=== PATIENT | female | born 1950 | race African-American/Black ===

== ENCOUNTER → 2016-04-24 | Outpatient (CLI) | payer MEDICARE, MEDICAID | END | disposition home or self-care (01) | LOC: LAB 10:17 | PROVIDERS: ATTEND Internal Medicine | DX: C71.9 Malignant neoplasm of brain, unspecified (principal) | CPT/HCPCS: 36415; 82565; 84520 ==

== ENCOUNTER → 2017-04-13 | Outpatient (CLI) | payer MEDICARE, MEDICAID ==
[2017-04-13 09:19] LABS: Basophils # (auto) 0.1 uL; Basophils % (auto) 0.8 % (0.0-2.0); Eosinophils # (auto) 0.5 uL; Eosinophils % (auto) 7.5 % (0.0-7.0); Hematocrit 37.4 % (36.0-46.0); Hemoglobin 12.4 g/dL (12.2-16.2); Lymphocytes # (auto) 2.5 uL; Lymphocytes % (auto) 36.4 % (10.0-50.0); Mean Corpuscular Hemoglobin 28.4 pg (28.0-32.0); Monocytes # (auto) 0.4 uL; Monocytes % (auto) 5.7 % (0.0-12.0); Neutrophils # (auto) 3.3 uL; Neutrophils % (auto) 49.6 % (37.0-80.0); Nucleated Red Blood Cells % 0.1 %; Platelet Count (auto) 247 10^3/uL (140-450); Red Blood Cells 4.35 10^6/uL (4.0-5.20); Red Cell Distribution Width 13.4 % (11.8-14.3); White Blood Cell 6.7 10^3/uL (4.4-10.8)
[2017-04-13 09:46] LABS: Albumin 3.8 g/dL (3.4-5.0); BUN/Creatinine Ratio 18.5; Bilirubin, Total 0.2 mg/dL (0.2-1.0); Calcium 9.8 mg/dL (8.5-10.1); Potassium 4.5 mmol/L (3.5-5.1); Total Protein 8.6 g/dL (6.4-8.2)
== END | disposition home or self-care (01) ==
LOC: LAB 08:57
PROVIDERS: ATTEND Physician Assistant
DX: I10 Essential (primary) hypertension (principal); I65.23 Occlusion and stenosis of bilateral carotid arteries; I63.9 Cerebral infarction, unspecified
CPT/HCPCS: 36415; 80053; 80061; 85025

== ENCOUNTER → 2018-12-05 | Outpatient (CLI) | payer MEDICARE, MEDICAID ==
[2018-12-05 08:42] LABS: Basophils # (auto) 0.1 uL; Basophils % (auto) 0.7 % (0.0-2.0); Eosinophils % (auto) 13.4 % (0.0-7.0); Hematocrit 35.9 % (36.0-46.0); Hemoglobin 11.5 g/dL (12.2-16.2); Lymphocytes # (auto) 3.6 uL; Lymphocytes % (auto) 46.5 % (10.0-50.0); Mean Corpuscular Hemoglobin 27.8 pg (28.0-32.0); Mean Corpuscular Volume 87.1 fL (80.0-100.0); Monocytes # (auto) 0.5 uL; Monocytes % (auto) 6.2 % (0.0-12.0); Neutrophils # (auto) 2.5 uL; Neutrophils % (auto) 33.2 % (37.0-80.0); Nucleated Red Blood Cells % 0.1 %; Platelet Count (auto) 249 10^3/uL (140-450); Red Blood Cells 4.12 10^6/uL (4.0-5.20); White Blood Cell 7.6 10^3/uL (4.4-10.8)
[2018-12-05 09:13] LABS: Albumin 3.3 g/dL (3.4-5.0); Potassium 5.5 mmol/L (3.5-5.1)
[2018-12-05 09:21] LABS: BUN/Creatinine Ratio 17.4; Bilirubin, Total 0.4 mg/dL (0.2-1.0); Total Protein 7.8 g/dL (6.4-8.2)
== END | disposition home or self-care (01) ==
LOC: LAB 08:20
PROVIDERS: ATTEND Physician Assistant
DX: I63.9 Cerebral infarction, unspecified (principal); I10 Essential (primary) hypertension; J45.20 Mild intermittent asthma, uncomplicated; I69.361 Other paralytic syndrome following cerebral infarction affecting right dominant side; I65.23 Occlusion and stenosis of bilateral carotid arteries
CPT/HCPCS: 36415; 80053; 80061; 85025

== ENCOUNTER 2019-02-10 17:39 | Inpatient (IN) | payer MEDICARE, MEDICAID ==
[~2019-02-10] VITALS: Ht 170.2 cm; Wt 67.6 kg
[2019-02-10 18:07] LABS: Basophils # (auto) 0 uL; Basophils % (auto) 0.5 % (0.0-2.0); Eosinophils # (auto) 0.9 uL; Eosinophils % (auto) 10.8 % (0.0-7.0); Hematocrit 32.4 % (36.0-46.0); Hemoglobin 10.4 g/dL (12.2-16.2); Lymphocytes # (auto) 2.4 uL; Lymphocytes % (auto) 28.9 % (10.0-50.0); Mean Corpuscular Hemoglobin 27.4 pg (28.0-32.0); Mean Corpuscular Hgb Conc. 32.1 g/dL (32.0-36.0); Mean Corpuscular Volume 85.4 fL (80.0-100.0); Monocytes # (auto) 0.8 uL; Monocytes % (auto) 8.9 % (0.0-12.0); Neutrophils # (auto) 4.3 uL; Neutrophils % (auto) 50.9 % (37.0-80.0); Platelet Count (auto) 268 10^3/uL (140-450); Red Blood Cells 3.79 10^6/uL (4.0-5.20); Red Cell Distribution Width 14.1 % (11.8-14.3); White Blood Cell 8.5 10^3/uL (4.4-10.8)
[2019-02-10 18:21] LABS: Alanine Aminotransferase 11 U/L (13-56); Albumin 3.2 g/dL (3.4-5.0); Anion Gap 6 (5-15); Aspartate Aminotransferase 9 U/L (15-37); BUN/Creatinine Ratio 20.5; Blood Urea Nitrogen 39 mg/dL (7-18); Calcium 8.4 mg/dL (8.5-10.1); Carbon Dioxide 18 mmol/L (21-32); Chloride 117 mmol/L (98-107); GFR African American 34 mL/min; GFR Non-African American 28 mL/min; Glucose 121 mg/dL (74-106); Potassium 4.3 mmol/L (3.5-5.1); Sodium 141 mmol/L (136-145)
[2019-02-10 18:30] LABS: Alkaline Phosphatase 245 U/L (45-117); Bilirubin, Total 0.4 mg/dL (0.2-1.0); Total Protein 7.9 g/dL (6.4-8.2)
[2019-02-10 19:20] LABS: Urine Bacteria FEW /hpf (None Seen); Urine Blood Negative /uL (Negative); Urine Specific Gravity 1.016 (1.001-1.035); Urine WBC 2 /hpf (0 - 5)
[2019-02-10 19:28] LABS: Alcohol, Urine < 3.0 mg/dL (0-5); Amphetamine Screen, Urine NEGATIVE (NEGATIVE); Barbiturate Scree,Urine NEGATIVE (NEGATIVE); Benzodiazephine Screen, Urine NEGATIVE (NEGATIVE); Cannabinoid Screen, Urine NEGATIVE (NEGATIVE); Cocaine Screen, Urine NEGATIVE (NEGATIVE); Opiate Scree,Urine NEGATIVE (NEGATIVE); Phencyclidine Screen, Urine NEGATIVE (NEGATIVE)
[2019-02-10] MEDS ORDERED: SODIUM CHLORIDE 0.9% 1,000 ML IV ONE (19:30)
[2019-02-10] MEDS ORDERED: cefTRIAXone 1GM/50ML D5W 50 ML IV ONE (19:45)
[2019-02-10] MEDS ORDERED: SODIUM CHLORIDE 0.9% 1,000 ML IV SCH (22:10)
[2019-02-10] MEDS ORDERED: ONDANSETRON HCL 4 MG/2 ML VIAL IV PRN (22:15)
[2019-02-10] MEDS ORDERED: ACETAMINOPHEN 325 MG TAB PO PRN (22:15)
[2019-02-10] MEDS ORDERED: DOCUSATE SOD 100 MG CAP PO PRN (22:15)
[2019-02-10] MEDS: SODIUM CHLORIDE 0.9% 1,000 ML IV SCH (23:00)
[2019-02-10] MEDS: HYDROcodone-ACET 5/325MG TAB PO PRN (23:01)
--- NOTE | 2019-02-10 23:30 | NUR ---
MS admit from ER Kya Coughlin admitted to tele/MS after SBAR received. Patient oriented to Serena stark RN, unit, room, bed, and unit policies regarding patient care and visiting hours. Patient weighed by bedscale and encouraged to call if they need something. All questions and concerns addressed, patient confused. call light with in reach. bed in low position. bed alarm on. will continue to monitor.
[2019-02-11] VITALS (7 sets, daily range): BP systolic 95–135; BP diastolic 48–66
--- NOTE | 2019-02-11 00:15 | NUR ---
UNABLE TO GET HOME MEDICATIONS. WILL ENDORSE TO DAY SHIFT.
[2019-02-11] MEDS: HYDROcodone-ACET 5/325MG TAB PO PRN ×2 (05:14→14:36)
[2019-02-11 06:37] LABS: Basophils # (auto) 0 uL; Basophils % (auto) 0.4 % (0.0-2.0); Hematocrit 29.1 % (36.0-46.0); Hemoglobin 9.5 g/dL (12.2-16.2); Lymphocytes # (auto) 3.1 uL; Lymphocytes % (auto) 40.1 % (10.0-50.0); Mean Corpuscular Hemoglobin 27.9 pg (28.0-32.0); Mean Corpuscular Hgb Conc. 32.7 g/dL (32.0-36.0); Mean Corpuscular Volume 85.4 fL (80.0-100.0); Monocytes # (auto) 0.7 uL; Monocytes % (auto) 8.8 % (0.0-12.0); Neutrophils # (auto) 2.9 uL; Neutrophils % (auto) 37.7 % (37.0-80.0); Nucleated Red Blood Cells % 0.1 %; Platelet Count (auto) 232 10^3/uL (140-450); Red Cell Distribution Width 14.4 % (11.8-14.3); White Blood Cell 7.7 10^3/uL (4.4-10.8)
[2019-02-11 07:04] LABS: BUN/Creatinine Ratio 19.9; Calcium 8.1 mg/dL (8.5-10.1); Potassium 4.1 mmol/L (3.5-5.1)
--- NOTE | 2019-02-11 07:30 | NUR ---
Opening Shift Note Assumed care of patient, awake, alert and oriented x1. No S/S of distress/SOB, but patient reporting right arm pain of 5/10. IV is in the right forearm and is asymptomatic, intact, patent, and infusing normal saline at 60 mL/hour. Bed is locked and in lowest position and call light is within reach. Instructed on POC and to call for assist PRN, and patient verbalized understanding to the best of her ability. Will continue to monitor for changes Q1hr and PRN.
[2019-02-11] MEDS: cefTRIAXone 1GM/50ML D5W 50 ML IV SCH (09:00)
[2019-02-11] MEDS ORDERED: cefTRIAXone SOD 500 MG VL IV SCH (10:00)
--- NOTE | 2019-02-11 12:00 | NUR ---
Daughter brought in home medications; will do medication reconciliation.
[2019-02-11] MEDS ORDERED: LISI40TA PO (12:05)
[2019-02-11] MEDS ORDERED: NAP500T PO (12:05)
[2019-02-11] MEDS ORDERED: TRIATAB3 PO (12:05)
[2019-02-11] MEDS: SODIUM CHLORIDE 0.9% 1,000 ML IV SCH (15:01)
[2019-02-11 22:39] LABS: Anion Gap 8 (5-15); Carbon Dioxide 17 mmol/L (21-32); Chloride 120 mmol/L (98-107); Potassium 4.3 mmol/L (3.5-5.1); Sodium 145 mmol/L (136-145)
[2019-02-11 22:40] LABS: BUN/Creatinine Ratio 18.5; Blood Urea Nitrogen 29 mg/dL (7-18); GFR African American 42 mL/min; GFR Non-African American 35 mL/min; Glucose 97 mg/dL (74-106)
[2019-02-12] MEDS: HYDROcodone-ACET 5/325MG TAB PO PRN ×2 (02:10→09:19)
[2019-02-12 04:51] VITALS: BP 121/59
[2019-02-12 06:03] LABS: Basophils # (auto) 0 uL; Basophils % (auto) 0.3 % (0.0-2.0); Eosinophils % (auto) 12.1 % (0.0-7.0); Hematocrit 27.8 % (36.0-46.0); Hemoglobin 9.3 g/dL (12.2-16.2); Lymphocytes # (auto) 3.1 uL; Lymphocytes % (auto) 37.8 % (10.0-50.0); Mean Corpuscular Hemoglobin 28.4 pg (28.0-32.0); Mean Corpuscular Hgb Conc. 33.3 g/dL (32.0-36.0); Mean Corpuscular Volume 85.1 fL (80.0-100.0); Monocytes # (auto) 0.6 uL; Monocytes % (auto) 7.9 % (0.0-12.0); Neutrophils # (auto) 3.4 uL; Neutrophils % (auto) 41.9 % (37.0-80.0); Nucleated Red Blood Cells % 0.1 %; Platelet Count (auto) 207 10^3/uL (140-450); Red Blood Cells 3.27 10^6/uL (4.0-5.20); Red Cell Distribution Width 14.2 % (11.8-14.3); White Blood Cell 8.1 10^3/uL (4.4-10.8)
--- NOTE | 2019-02-12 07:30 | NUR ---
Opening Shift Note Assumed care of patient, awake, alert and oriented x2. No S/S of distress/SOB. IV is in the right forearm and is asymptomatic, intact, patent, and saline locked. Bed is locked and in lowest position and call light is within reach. Instructed on POC and to call for assist PRN, and patient verbalized understanding to the best of her ability. Will continue to monitor for changes Q1hr and PRN.
[2019-02-12 09:00] VITALS: BP 106/55
[2019-02-12] MEDS: SODIUM CHLORIDE 0.9% 1,000 ML IV SCH (09:19)
[2019-02-12] MEDS: cefTRIAXone 1GM/50ML D5W 50 ML IV SCH (09:19)
--- NOTE | 2019-02-12 09:30 | NUR ---
Patient reports pain in right arm and wrist of 10/10; applied hot packs to right wrist and arm and administered ordered pain medication. Will reassess in 30 minutes.
--- NOTE | 2019-02-12 10:15 | NUR ---
Patient is now reporting pain level of 4/10 in right arm and shoulder. Repositioned patient for comfort. Will continue to monitor Q 30 minutes.
[2019-02-12 13:00] VITALS: BP 106/65
[2019-02-12 17:00] VITALS: BP 112/55
[2019-02-12] MEDS: traMADol HCL 50 MG TAB PO PRN (20:28)
[2019-02-12 22:00] VITALS: BP 116/50
[2019-02-13] MEDS: traMADol HCL 50 MG TAB PO PRN ×3 (04:27→15:25)
[2019-02-13 05:00] VITALS: BP 124/58
[2019-02-13 06:05] LABS: Basophils # (auto) 0 uL; Basophils % (auto) 0.4 % (0.0-2.0); Eosinophils # (auto) 0.9 uL; Eosinophils % (auto) 11.1 % (0.0-7.0); Hematocrit 28.8 % (36.0-46.0); Hemoglobin 9.7 g/dL (12.2-16.2); Lymphocytes # (auto) 2.3 uL; Lymphocytes % (auto) 27.8 % (10.0-50.0); Mean Corpuscular Hemoglobin 28.4 pg (28.0-32.0); Mean Corpuscular Hgb Conc. 33.6 g/dL (32.0-36.0); Mean Corpuscular Volume 84.3 fL (80.0-100.0); Monocytes # (auto) 0.7 uL; Monocytes % (auto) 8.7 % (0.0-12.0); Neutrophils # (auto) 4.3 uL; Nucleated Red Blood Cells % 0.1 %; Platelet Count (auto) 227 10^3/uL (140-450); Red Blood Cells 3.42 10^6/uL (4.0-5.20); Red Cell Distribution Width 14.4 % (11.8-14.3); White Blood Cell 8.2 10^3/uL (4.4-10.8)
[2019-02-13 06:18] LABS: Calcium 8.2 mg/dL (8.5-10.1); Potassium 4.5 mmol/L (3.5-5.1)
--- NOTE | 2019-02-13 07:20 | NUR ---
Opening Shift Note Assumed care of patient, awake, alert and oriented x3. No S/S of distress/SOB, but patient reporting right arm pain of 7/10. IV is in the right forearm and is asymptomatic, intact, patent, and is saline locked. Bed is locked and in lowest position and call light is within reach. Instructed on POC and to call for assist PRN, and patient verbalized understanding to the best of her ability. Will continue to monitor for changes Q1hr and PRN.
[2019-02-13 08:00] VITALS: BP 143/69
[2019-02-13 09:00] VITALS: BP 143/69
[2019-02-13] MEDS: cefTRIAXone 1GM/50ML D5W 50 ML IV SCH (09:16)
--- NOTE | 2019-02-13 12:30 | NUR ---
Dr. Schafer, Hospitalist/[employer], at bedside; new orders received.
--- NOTE | 2019-02-13 12:45 | NUR ---
Called contact Spencer, and left message to return call regarding patient discharge and transportation.
[2019-02-13] MEDS ORDERED: AML5T PO (12:46)
[2019-02-13] MEDS ORDERED: ATOR40TA52 PO (12:51)
[2019-02-13] MEDS ORDERED: ASPI-231 PO (12:53)
[2019-02-13 13:00] VITALS: BP 113/60
[2019-02-13] MEDS ORDERED: NAPR375T27 PO (13:27)
[2019-02-13] MEDS ORDERED: LISI40TA PO (13:27)
[2019-02-13] MEDS ORDERED: TRIATAB3 PO (13:27)
--- NOTE | 2019-02-13 13:28 | NUR ---
Dr. Mark MD, ordered patient to stop current home medications until seen by primary care provider for discharge follow up appointment; new medications were given for aspirin, norvasc, and atorvastatin.
[2019-02-13 13:42] VITALS: BP 143/69
[2019-02-13 17:00] VITALS: BP 128/67
--- NOTE | 2019-02-13 18:00 | NUR ---
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
--- NOTE | 2019-02-13 19:25 | NUR ---
RECEIVED PATIENT FROM DAY SHIFT RN. PATIENT RESTING IN BED. NO S/S OF DISTRESS NOTED. IV REMOVED BY DAY SHIFT RN. PATIENT AWARE OF WAITING FOR HER FAMILY TO PICK HER UP FOR DISCHARGE. BED IN LOWEST POSITION WITH SIDE RAILS UP X 2. CALL MATHEW WITHIN REACH. ALARM ON. CONTINUE TO MONITOR FOR CHANGES Q1H AND PRN.
--- NOTE | 2019-02-13 19:53 | NUR ---
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 CALLED LAILA @ [phone], PHONE TO THE VOICE MAIL BOX DIRECTLY. WILL TRY LATER. CONTINUE TO MONITOR.
--- NOTE | 2019-02-13 20:24 | NUR ---
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 PATIENT AWARE. CONTINUE TO MONITOR.
--- NOTE | 2019-02-13 22:05 | NUR ---
Discharge instructions PREPARED AND given BY DAY SHIFT RN as ordered. Encourage to follow up with PMD as instructed. All questions and concerns addressed. Patient verbalized understanding. Medication reconciliation form completed and copy given to patient. IV removed BY DAY SHIFT RN. REMIND FAMILY FOR THE F/U APPT ON 02/17. Patient taken to vehicle via wheelchair with all personal belongings, accompanied by staff and family member. No distress noted at time of departure.
== END 2019-02-13 22:05 | disposition home or self-care (01) | DRG 314 ==
LOC: EDBD 17:39 → ER 17:39 → OVERFLOW 17:40 → EAST 23:31
PROVIDERS: ADMIT Hospitalist; ATTEND Internal Medicine Nephrology
DX: I95.9 Hypotension, unspecified (principal); G93.41 Metabolic encephalopathy; N17.0 Acute kidney failure with tubular necrosis; N39.0 Urinary tract infection, site not specified; I69.351 Hemiplegia and hemiparesis following cerebral infarction affecting right dominant side; E87.2 Acidosis; T39.395A Adverse effect of other nonsteroidal anti-inflammatory drugs [NSAID], initial encounter; D64.9 Anemia, unspecified; I10 Essential (primary) hypertension; D63.8 Anemia in other chronic diseases classified elsewhere; E78.5 Hyperlipidemia, unspecified; F03.90 Unspecified dementia, unspecified severity, without behavioral disturbance, psychotic disturbance, mood disturbance, and anxiety; G89.4 Chronic pain syndrome; I12.9 Hypertensive chronic kidney disease with stage 1 through stage 4 chronic kidney disease, or unspecified chronic kidney disease; N18.3 Chronic kidney disease, stage 3 (moderate); Y92.89 Other specified places as the place of occurrence of the external cause
CPT/HCPCS: 36415; 70450; 80048; 80053; 80307; 81001; 82962; 83605; 83880; 84484; 85025; 87086; 93005; 96365; G0378; J0696

== ENCOUNTER → 2019-11-27 | Outpatient (CLI) | payer MEDICARE, MEDICAID ==
[~2019-11-27] MED LIST: ATOR40TA52 PO; LISI40TA11 PO; NAPR375T27 PO; TRIATAB3 PO
[2019-11-27 11:51] LABS: Basophils # (auto) 0 10 ^3/uL (0-0.2); Basophils % (auto) 0.4 % (0.0-2.0); Eosinophils % (auto) 10.8 % (0.0-7.0); Hematocrit 32.6 % (36.0-46.0); Hemoglobin 10.4 g/dL (12.2-16.2); Lymphocytes # (auto) 3.5 10 ^3/uL (0.4-5.4); Lymphocytes % (auto) 37.2 % (10.0-50.0); Mean Corpuscular Hemoglobin 26.2 pg (28.0-32.0); Monocytes # (auto) 0.7 10 ^3/uL (0-1.3); Monocytes % (auto) 7.7 % (0.0-12.0); Neutrophils # (auto) 4.2 10 ^3/uL (1.6-8.6); Neutrophils % (auto) 43.9 % (37.0-80.0); Platelet Count (auto) 256 10^3/uL (140-450); Red Blood Cells 3.97 10^6/uL (4.0-5.20); Red Cell Distribution Width 13.7 % (11.8-14.3); White Blood Cell 9.5 10^3/uL (4.4-10.8)
[2019-11-27 12:35] LABS: Albumin 3.3 g/dL (3.4-5.0); BUN/Creatinine Ratio 16.9; Bilirubin, Total 0.2 mg/dL (0.2-1.0); Calcium 9.2 mg/dL (8.5-10.1); Total Protein 8.1 g/dL (6.4-8.2)
== END | disposition home or self-care (01) ==
LOC: LAB 11:29
PROVIDERS: ATTEND Physician Assistant
DX: I10 Essential (primary) hypertension (principal); I63.9 Cerebral infarction, unspecified; G93.40 Encephalopathy, unspecified; I69.361 Other paralytic syndrome following cerebral infarction affecting right dominant side
CPT/HCPCS: 36415; 80053; 80061; 85025

== ENCOUNTER → 2019-11-29 | Outpatient (CLI) | payer MEDICARE, MEDICAID | END | disposition home or self-care (01) | LOC: XY 10:26 | PROVIDERS: ATTEND Physician Assistant | DX: I65.23 Occlusion and stenosis of bilateral carotid arteries (principal); I63.9 Cerebral infarction, unspecified | CPT/HCPCS: 93886 ==

== ENCOUNTER 2021-03-18 21:43 | Inpatient (IN) | payer MEDICARE, MEDICAID ==
[~2021-03-18] VITALS: Ht 162.6 cm; Wt 61.0 kg
[2021-03-18 23:01] LABS: Basophils # (auto) 0.1 10 ^3/uL (0-0.2); Eosinophils # (auto) 0 10 ^3/uL (0-0.8); Mean Corpuscular Hemoglobin 25.4 pg (28.0-32.0); Mean Corpuscular Volume 79.5 fL (80.0-100.0); Monocytes # (auto) 0.4 10 ^3/uL (0-1.3); Monocytes % (auto) 2.6 % (0.0-12.0)
[2021-03-18 23:03] LABS: Basophils % (auto) 0.6 % (0.0-2.0); Eosinophils % (auto) 0.4 % (0.0-7.0); Hematocrit 32.2 % (36.0-46.0); Hemoglobin 10.3 g/dL (12.2-16.2); Lymphocytes % (auto) 7.2 % (10.0-50.0); Neutrophils % (auto) 89.2 % (37.0-80.0); Red Blood Cells 4.05 10^6/uL (4.0-5.20); Red Cell Distribution Width 13.8 % (11.8-14.3); White Blood Cell 13.5 10^3/uL (4.4-10.8)
[2021-03-18 23:21] LABS: Albumin 3.6 g/dL (3.4-5.0); Calcium 9.7 mg/dL (8.5-10.1); Magnesium 2.4 mg/dL (1.6-2.6); Potassium 5.1 mmol/L (3.5-5.1)
[2021-03-18 23:26] LABS: INR 0.99 (0.9-1.15)
[2021-03-18 23:28] LABS: BUN/Creatinine Ratio 15.8; Bilirubin, Total 0.2 mg/dL (0.2-1.0); Total Protein 8.6 g/dL (6.4-8.2)
[2021-03-18] MEDS ORDERED: ONDANSETRON HCL 4 MG/2 ML VIAL IV ONE (23:30)
[2021-03-19] MEDS ORDERED: ONDANSETRON HCL 4 MG/2 ML VIAL ONE (00:08)
[2021-03-19] MEDS ORDERED: ACETAMINOPHEN 500 MG TAB PO ONE (01:00)
[2021-03-19 06:04] LABS: Urine Bacteria NONE SEEN /hpf (None Seen); Urine Blood Negative /uL (Negative); Urine Specific Gravity 1.006 (1.001-1.035); Urine WBC <1 /hpf (0 - 5)
[2021-03-19] MEDS ORDERED: NITROGLYCERIN 0.4 MG SL TAB SL PRN ×2 (13:30→16:15)
[2021-03-19] MEDS ORDERED: MORPHINE SULFATE INJECTION 2 MG/ML SYRG IV PRN ×3 (13:30→16:15)
[2021-03-19] MEDS ORDERED: ASPI325T33 PO (13:52)
[2021-03-19] MEDS ORDERED: LISI20TA28 PO (13:52)
[2021-03-19] MEDS ORDERED: MILK140C PO (13:53)
[2021-03-19] MEDS ORDERED: CALC-437 PO (13:54)
[2021-03-19] MEDS ORDERED: hydrALAZINE HCL 20 MG/ML VL IV PRN (16:15)
[2021-03-19] MEDS ORDERED: HYDROcodone-ACET 5/325MG TAB PO PRN (16:15)
[2021-03-19] MEDS ORDERED: DOCUSATE SOD 100 MG CAP PO PRN (16:15)
[2021-03-19] MEDS ORDERED: ONDANSETRON HCL 4 MG/2 ML VIAL IV PRN (16:15)
[2021-03-19] MEDS ORDERED: ATORVASTATIN 20 MG TAB PO ONE (16:15)
[2021-03-19] MEDS ORDERED: METOPROLOL SUCCINATE XL 50 MG TAB PO ONE (16:15)
[2021-03-19] MEDS ORDERED: ACETAMINOPHEN 325 MG TAB PO PRN (16:15)
[2021-03-19] MEDS ORDERED: IPRATROPIUM BROM 0.5 MG/2.5ML INH SOL NEB ONE (16:15)
[2021-03-19] MEDS ORDERED: AZITHROMYCIN 500MG/ 250ML 250 ML IV ONE (16:15)
[2021-03-19] MEDS ORDERED: BUDESONIDE (INHALATION) 0.5 MG/2 ML NEB NEB ONE (16:15)
[2021-03-19] MEDS ORDERED: NIFEdipine ER 30 MG TAB PO ONE (16:15)
[2021-03-19] MEDS ORDERED: FAMOTIDINE (10MG/ML) 2ML VL IV ONE (16:15)
[2021-03-19] MEDS ORDERED: CALCIUM W/VIT D (600MG/400IU) TAB PO ONE (16:15)
[2021-03-19] MEDS ORDERED: LORazepam 0.5 MG TAB PO PRN (16:15)
[2021-03-19] MEDS ORDERED: ASPirin 81 mg TAB PO ONE (16:15)
[2021-03-19] MEDS ORDERED: ALUM & MAG HYDROX-SIMETH LIQ(MAALOX) 30 ML PO PRN (16:15)
[2021-03-19 16:56] VITALS: BP 125/52
[2021-03-19] MEDS ORDERED: IPRATROPIUM BROM 0.5 MG/2.5ML INH SOL NEB SCH (18:00)
[2021-03-19] MEDS: CALCIUM W/VIT D (600MG/400IU) TAB PO SCH (18:21)
[2021-03-19 20:00] VITALS: BP 123/67
[2021-03-19] MEDS: hydrALAZINE HCL 25 MG TAB PO SCH (21:54)
[2021-03-19] MEDS ORDERED: BUDESONIDE (INHALATION) 0.5 MG/2 ML NEB NEB SCH (22:00)
[2021-03-20] MEDS: hydrALAZINE HCL 25 MG TAB PO SCH (06:00)
[2021-03-20 06:02] LABS: Eosinophils # (auto) 0.5 10 ^3/uL (0-0.8); Hemoglobin 9.5 g/dL (12.2-16.2); Mean Corpuscular Volume 79.7 fL (80.0-100.0); Neutrophils # (auto) 5.9 10 ^3/uL (1.6-8.6)
[2021-03-20 06:05] LABS: Basophils # (auto) 0 10 ^3/uL (0-0.2); Basophils % (auto) 0.4 % (0.0-2.0); Eosinophils % (auto) 4.8 % (0.0-7.0); Hematocrit 29.1 % (36.0-46.0); Lymphocytes # (auto) 2.6 10 ^3/uL (0.4-5.4); Lymphocytes % (auto) 26.5 % (10.0-50.0); Mean Corpuscular Hemoglobin 26.1 pg (28.0-32.0); Mean Corpuscular Hgb Conc. 32.7 g/dL (32.0-36.0); Monocytes # (auto) 0.8 10 ^3/uL (0-1.3); Neutrophils % (auto) 60.3 % (37.0-80.0); Nucleated Red Blood Cells % 0.2 %; Red Blood Cells 3.65 10^6/uL (4.0-5.20); Red Cell Distribution Width 13.9 % (11.8-14.3); White Blood Cell 9.8 10^3/uL (4.4-10.8)
[2021-03-20 06:13] LABS: Albumin 2.9 g/dL (3.4-5.0); Calcium 8.9 mg/dL (8.5-10.1); Potassium 4.6 mmol/L (3.5-5.1)
[2021-03-20 06:16] LABS: INR 1.06 (0.9-1.15); Partial Thromboplastin Time 23.9 sec (23.6-33.0)
[2021-03-20 06:18] LABS: BUN/Creatinine Ratio 14.9; Bilirubin, Total 0.3 mg/dL (0.2-1.0); Phosphorus 3.5 mg/dL (2.5-4.90); Total Protein 7.5 g/dL (6.4-8.2)
[2021-03-20 09:03] VITALS: BP 96/50
[2021-03-20] MEDS: CALCIUM W/VIT D (600MG/400IU) TAB PO SCH ×2 (09:41→18:16)
[2021-03-20] MEDS: FAMOTIDINE (10MG/ML) 2ML VL IV SCH ×2 (09:41→22:21)
[2021-03-20] MEDS: AZITHROMYCIN 500MG/ 250ML 250 ML IV SCH (09:42)
[2021-03-20] MEDS: ASPirin 81 mg TAB PO SCH (09:42)
[2021-03-20] MEDS ORDERED: METOPROLOL SUCCINATE XL 50 MG TAB PO SCH (10:00)
[2021-03-20] MEDS ORDERED: NIFEdipine ER 30 MG TAB PO SCH (10:00)
[2021-03-20 11:19] LABS: Cholesterol 135 mg/dL (< 200); HDL Cholesterol 45 mg/dL (40-59); LDL Cholesterol 73 mg/dL (< 100); Triglycerides 75 mg/dL (< 150)
[2021-03-20 11:23] LABS: Free T3 7.56 pg/mL (2.3-4.2); Free T4 (Free Thyroxine) 2.18 ng/dL (0.89-1.76)
[2021-03-20 11:50] VITALS: BP 99/51
[2021-03-20 18:00] VITALS: BP 95/54
[2021-03-20 21:37] VITALS: BP_SYST 97; BP_SYST 98; BP_DIAS 43; BP_DIAS 46
[2021-03-20] MEDS ORDERED: ATORVASTATIN 20 MG TAB PO SCH (22:00)
[2021-03-21 05:00] VITALS: BP 108/58
[2021-03-21] MEDS: ASPirin 81 mg TAB PO SCH (08:54)
[2021-03-21] MEDS: CALCIUM W/VIT D (600MG/400IU) TAB PO SCH (08:54)
[2021-03-21] MEDS: FAMOTIDINE (10MG/ML) 2ML VL IV SCH (08:55)
[2021-03-21] MEDS: AZITHROMYCIN 500MG/ 250ML 250 ML IV SCH (08:55)
[2021-03-21] MEDS ORDERED: LISINOPRIL 20 MG TAB PO SCH (10:00)
[2021-03-21 11:33] VITALS: BP 122/68
== END 2021-03-21 13:40 | disposition home or self-care (01) | DRG 312 ==
LOC: EDBD 21:43 → ER 21:43 → TELE 03-19 13:22 → TELE-WESTW 03-19 16:53
PROVIDERS: ADMIT Hospitalist; ATTEND Family Medicine
DX: R55 Syncope and collapse (principal); G93.41 Metabolic encephalopathy; J44.0 Chronic obstructive pulmonary disease with (acute) lower respiratory infection; I16.9 Hypertensive crisis, unspecified; I69.351 Hemiplegia and hemiparesis following cerebral infarction affecting right dominant side; I65.23 Occlusion and stenosis of bilateral carotid arteries; E05.90 Thyrotoxicosis, unspecified without thyrotoxic crisis or storm; J20.9 Acute bronchitis, unspecified; Z20.822 Contact with and (suspected) exposure to COVID-19; K21.9 Gastro-esophageal reflux disease without esophagitis; K29.70 Gastritis, unspecified, without bleeding; N18.31 Chronic kidney disease, stage 3a; I25.10 Atherosclerotic heart disease of native coronary artery without angina pectoris; D50.9 Iron deficiency anemia, unspecified; D72.829 Elevated white blood cell count, unspecified; F01.50 Vascular dementia, unspecified severity, without behavioral disturbance, psychotic disturbance, mood disturbance, and anxiety; E78.5 Hyperlipidemia, unspecified; F17.200 Nicotine dependence, unspecified, uncomplicated; I13.10 Hypertensive heart and chronic kidney disease without heart failure, with stage 1 through stage 4 chronic kidney disease, or unspecified chronic kidney disease; Z91.19 Patient's noncompliance with other medical treatment and regimen; Z79.82 Long term (current) use of aspirin; Z79.899 Other long term (current) drug therapy; F12.90 Cannabis use, unspecified, uncomplicated
CPT/HCPCS: 36415; 70450; 70551; 71045; 73030; 76536; 76705; 80053; 80061; 81001; 82306; 82962; 83036; 83605; 83735; 83880; 84100; 84439; 84443; 84481; 84484; 85025; 85379; 85610; 85730; 87040; 87086; 87426; 93005; 93306; 93886; 96374; G0378; J2405; J3490

== ENCOUNTER → 2021-04-15 | Outpatient (CLI) | payer MEDICARE, MEDICAID ==
[~2021-04-15] MED LIST changes: +ASPI325T33 PO; -ATOR40TA52 PO; +CALC-437 PO; +LISI20TA28 PO; -LISI40TA11 PO; +MILK140C PO; -NAPR375T27 PO
[2021-04-15 08:24] LABS: Basophils # (auto) 0.1 10 ^3/uL (0-0.2); Basophils % (auto) 1.3 % (0.0-2.0); Eosinophils # (auto) 0.9 10 ^3/uL (0-0.8); Eosinophils % (auto) 8.6 % (0.0-7.0); Hematocrit 29.1 % (36.0-46.0); Hemoglobin 9.6 g/dL (12.2-16.2); Lymphocytes # (auto) 3.8 10 ^3/uL (0.4-5.4); Mean Corpuscular Hemoglobin 26.3 pg (28.0-32.0); Mean Corpuscular Hgb Conc. 33.1 g/dL (32.0-36.0); Mean Corpuscular Volume 79.6 fL (80.0-100.0); Monocytes # (auto) 0.8 10 ^3/uL (0-1.3); Monocytes % (auto) 7.8 % (0.0-12.0); Neutrophils # (auto) 4.5 10 ^3/uL (1.6-8.6); Neutrophils % (auto) 44.3 % (37.0-80.0); Red Blood Cells 3.65 10^6/uL (4.0-5.20); Red Cell Distribution Width 14.2 % (11.8-14.3); White Blood Cell 10.1 10^3/uL (4.4-10.8)
[2021-04-15 08:37] LABS: Potassium 4.7 mmol/L (3.5-5.1)
[2021-04-15 09:11] LABS: BUN/Creatinine Ratio 15.7; Bilirubin, Total 0.3 mg/dL (0.2-1.0); Calcium 9.3 mg/dL (8.5-10.1); Total Protein 7.9 g/dL (6.4-8.2)
== END | disposition home or self-care (01) ==
LOC: LAB 07:34
PROVIDERS: ATTEND Nurse Practitioner Family
DX: I12.9 Hypertensive chronic kidney disease with stage 1 through stage 4 chronic kidney disease, or unspecified chronic kidney disease (principal); N18.30 Chronic kidney disease, stage 3 unspecified; I65.23 Occlusion and stenosis of bilateral carotid arteries; R74.8 Abnormal levels of other serum enzymes; Z86.73 Personal history of transient ischemic attack (TIA), and cerebral infarction without residual deficits
CPT/HCPCS: 36415; 80053; 80061; 85025

== ENCOUNTER → 2022-05-18 | Outpatient (CLI) | payer MEDICARE, MEDICAID ==
[2022-05-18 10:10] LABS: Albumin 3.4 g/dL (3.4-5.0); Calcium 9.3 mg/dL (8.5-10.1); Potassium 4.1 mmol/L (3.5-5.1)
[2022-05-18 10:12] LABS: Hematocrit 36.7 % (36.0-46.0); Hemoglobin 12.1 g/dL (12.2-16.2); Mean Corpuscular Hemoglobin 27.5 pg (28.0-32.0); Mean Corpuscular Hgb Conc. 32.8 g/dL (32.0-36.0); Mean Corpuscular Volume 83.8 fL (80.0-100.0); Red Blood Cells 4.38 10^6/uL (4.0-5.20); Red Cell Distribution Width 13.2 % (11.8-14.3)
[2022-05-18 10:15] LABS: Band Neutrophils % (manual) 0; Basophils % (manual) 0 (0.0-2.0); Blast Cells 0; Metamyelocytes % 0; Myelocytes % 0; Promyelocytes % 0; Reactive Lymphocytes 0
[2022-05-18 10:16] LABS: BUN/Creatinine Ratio 7.4; Bilirubin, Total 0.2 mg/dL (0.2-1.0); Total Protein 8.6 g/dL (6.4-8.2)
[2022-05-18 11:47] LABS: Eosinophils % (manual) 18 (0-7); Lymphocytes % (manual) 36 (10.0-50.0); Monocytes % (manual) 4 (0-12)
== END | disposition home or self-care (01) ==
LOC: LAB 09:22
PROVIDERS: ATTEND Nurse Practitioner Family
DX: I12.9 Hypertensive chronic kidney disease with stage 1 through stage 4 chronic kidney disease, or unspecified chronic kidney disease (principal); N18.30 Chronic kidney disease, stage 3 unspecified
CPT/HCPCS: 36415; 80053; 80061; 84439; 84443; 85007; 85027

== ENCOUNTER 2023-01-20 18:02 | Inpatient (IN) | payer MEDICARE, MEDICAID ==
[~2023-01-20] VITALS: Ht 162.6 cm; Wt 82.0 kg
[~2023-01-20 18:02] MED LIST changes: +ASPI1TAB38 PO; -ASPI325T33 PO; -LISI20TA28 PO; +LISI20TA56 PO
[2023-01-20 18:15] VITALS: PULSE 115; RESP 30; O2SAT 95
[2023-01-20] MEDS ORDERED: IPRATROPIUM BROM 0.5 MG/2.5ML INH SOL NEB ONE (18:45)
[2023-01-20] MEDS ORDERED: ALBUTEROL SULF 2.5 MG/0.5ML(0.5%) NEB SOLN NEB ONE (18:45)
[2023-01-20 19:24] LABS: Basophils # (auto) 0.1 10 ^3/uL (0-0.2); Basophils % (auto) 0.4 % (0.0-2.0); Eosinophils # (auto) 0.5 10 ^3/uL (0-0.8); Eosinophils % (auto) 3.5 % (0.0-7.0); Hematocrit 36.2 % (36.0-46.0); Hemoglobin 11.9 g/dL (12.2-16.2); Lymphocytes # (auto) 2.9 10 ^3/uL (0.4-5.4); Lymphocytes % (auto) 18.3 % (10.0-50.0); Mean Corpuscular Hemoglobin 28.2 pg (28.0-32.0); Mean Corpuscular Hgb Conc. 32.9 g/dL (32.0-36.0); Mean Corpuscular Volume 85.7 fL (80.0-100.0); Monocytes # (auto) 0.9 10 ^3/uL (0-1.3); Monocytes % (auto) 5.5 % (0.0-12.0); Neutrophils # (auto) 11.2 10 ^3/uL (1.6-8.6); Neutrophils % (auto) 72.3 % (37.0-80.0); Nucleated Red Blood Cells % 0.2 %; Red Blood Cells 4.23 10^6/uL (4.0-5.20); Red Cell Distribution Width 15.5 % (11.8-14.3); White Blood Cell 15.5 10^3/uL (4.4-10.8)
[2023-01-20 19:30] VITALS: PULSE 102; RESP 28; O2SAT 100
[2023-01-20 19:33] LABS: Alanine Aminotransferase 17 U/L (7-40); Albumin 4.4 g/dL (3.2-4.8); Alkaline Phosphatase 181 U/L (46-116); Anion Gap 8 (5-15); Aspartate Aminotransferase 21 U/L (13-40); BUN/Creatinine Ratio 9.2 (10.0-20.0); Blood Urea Nitrogen 14 mg/dL (9-23); Calcium 9.5 mg/dL (8.7-10.4); Carbon Dioxide 22 mmol/L (20-30); Chloride 108 mmol/L (98-107); Glucose 130 mg/dL (74-106); Magnesium 1.8 mg/dL (1.6-2.6); Potassium 4.3 mmol/L (3.5-5.1); Sodium 138 mmol/L (136-145)
[2023-01-20 19:34] LABS: Bilirubin, Total 0.2 mg/dL (0.2-1.0)
[2023-01-20] MEDS ORDERED: ALBUTEROL MEDNEB 2.5 mg/3ml NEB ONE (19:45)
[2023-01-20] MEDS ORDERED: IPRATROPIUM BROM 0.5 MG/2.5ML INH SOL ONE (19:45)
[2023-01-20 20:17] VITALS: BP 112/66; PULSE 101; RESP 24; TEMP 97.9; O2SAT 100
[2023-01-20 20:22] LABS: Base Excess -3.9 mmol/L (-2.0-2.0)
[2023-01-20] MEDS ORDERED: AZITHROMYCIN 500MG/ 250ML 250 ML IV ONE (22:15)
[2023-01-20] MEDS ORDERED: cefTRIAXone 1GM/50ML D5W 50 ML IV ONE (22:15)
[2023-01-20] MEDS ORDERED: ONDANSETRON HCL 4 MG/2 ML VIAL IV PRN (22:30)
[2023-01-20] MEDS ORDERED: MORPHINE SULFATE INJ 2 MG/ml SYRG IV PRN (22:30)
[2023-01-20] MEDS ORDERED: ACETAMINOPHEN 325 MG TAB PO PRN (22:30)
[2023-01-20] MEDS ORDERED: IPRATROPIUM BROM 0.5 MG/2.5ML INH SOL NEB PRN (22:30)
[2023-01-20] MEDS ORDERED: ALBUTEROL SULF 2.5 MG/0.5ML(0.5%) NEB SOLN NEB PRN (22:30)
[2023-01-20] MEDS ORDERED: NITROGLYCERIN 0.4 MG SL TAB SL PRN (22:30)
[2023-01-20] MEDS: methylPREDNISolone SOD SUCC 40 MG/ML VL IV SCH (23:23)
[2023-01-20 23:31] LABS: Urine Bacteria MOD /hpf (None Seen); Urine Blood Negative /uL (Negative); Urine Clarity HAZY (Clear); Urine Color Colorless (Yellow); Urine Protein, UAD Negative (Negative); Urine Specific Gravity 1.007 (1.001-1.035); Urine Urobilinogen Normal (Negative); Urine WBC 7 /hpf (0 - 5)
[2023-01-21 00:28] LABS: Rapid Influenza A Negative (Negative)
[2023-01-21] MEDS: HYDROcodone-ACET 5/325MG TAB PO PRN (00:29)
[2023-01-21 00:31] LABS: Rapid Influenza B Positive (Negative)
[2023-01-21 00:33] LABS: COVID19 ANTIGEN SOFIA FIA NEGATIVE (NEGATIVE)
[2023-01-21 05:46] LABS: Anion Gap 10 (5-15); Carbon Dioxide 22 mmol/L (20-30); Chloride 108 mmol/L (98-107); Sodium 140 mmol/L (136-145)
[2023-01-21 05:47] LABS: Basophils # (auto) 0.1 10 ^3/uL (0-0.2); Basophils % (auto) 0.5 % (0.0-2.0); Calcium 9.4 mg/dL (8.7-10.4); Eosinophils # (auto) 0 10 ^3/uL (0-0.8); Eosinophils % (auto) 0.1 % (0.0-7.0); Hematocrit 34.5 % (36.0-46.0); Hemoglobin 11.2 g/dL (12.2-16.2); Lymphocytes # (auto) 0.8 10 ^3/uL (0.4-5.4); Lymphocytes % (auto) 6.5 % (10.0-50.0); Mean Corpuscular Hemoglobin 27.3 pg (28.0-32.0); Mean Corpuscular Hgb Conc. 32.4 g/dL (32.0-36.0); Mean Corpuscular Volume 84.1 fL (80.0-100.0); Monocytes # (auto) 0.1 10 ^3/uL (0-1.3); Monocytes % (auto) 0.6 % (0.0-12.0); Neutrophils # (auto) 10.9 10 ^3/uL (1.6-8.6); Neutrophils % (auto) 92.3 % (37.0-80.0); Red Blood Cells 4.11 10^6/uL (4.0-5.20); Red Cell Distribution Width 15.1 % (11.8-14.3); White Blood Cell 11.8 10^3/uL (4.4-10.8)
[2023-01-21 05:52] LABS: BUN/Creatinine Ratio 9.7 (10.0-20.0); Blood Urea Nitrogen 15 mg/dL (9-23); Glucose 130 mg/dL (74-106)
[2023-01-21 07:51] VITALS: PULSE 78; RESP 18; O2SAT 100
[2023-01-21] MEDS ORDERED: ENOXAPARIN SOD 30 MG/0.3 ML SYRINGE SC SCH (10:00)
[2023-01-21] MEDS: methIMAzole 5 MG TAB PO SCH (10:16)
[2023-01-21] MEDS: methylPREDNISolone SOD SUCC 40 MG/ML VL IV SCH ×2 (10:17→22:24)
[2023-01-21] MEDS: amLODIPine BESYLATE 5 MG TAB PO SCH (10:17)
[2023-01-21] MEDS ORDERED: cefTRIAXone 1GM/50ML D5W 50 ML IV SCH (12:00)
[2023-01-21] MEDS ORDERED: AZITHROMYCIN 500MG/ 250ML 250 ML IV SCH (12:00)
[2023-01-21] MEDS ORDERED: IOHEXOL 350 MG/ML 100ML IJ ONE ×2 (12:08→15:44)
[2023-01-21] MEDS ORDERED: OSELTAMIVIR 75 MG CAP PO ONE (13:30)
[2023-01-21] MEDS: OSELTAMIVIR 30 MG CAP PO SCH ×2 (15:09→22:24)
[2023-01-21 16:40] VITALS: O2SAT 97
[2023-01-21 16:41] VITALS: O2SAT 97
[2023-01-21] MEDS ORDERED: HYALURONIDASE 150 UNIT/1 ML SUBCUT ONE (19:00)
[2023-01-21 19:30] VITALS: PULSE 82; RESP 20; O2SAT 90
[2023-01-21 20:15] VITALS: O2SAT 97
[2023-01-21] MEDS ORDERED: OSELTAMIVIR 75 MG CAP PO SCH (22:00)
[2023-01-21 22:11] VITALS: BP 126/73; PULSE 73; PULSE 97; RESP 18; RESP 19; TEMP 98.5; O2SAT 97; O2SAT 99
[2023-01-22] VITALS (8 sets, daily range): BP systolic 130–155; BP diastolic 61–74; PULSE 63–96; RESP 17–19; TEMP 98–98.7; O2SAT 96–98
[2023-01-22] MEDS: HYDROcodone-ACET 5/325MG TAB PO PRN (03:16)
[2023-01-22 06:00] LABS: INR 1.01 (0.9-1.15); Partial Thromboplastin Time 26.5 SEC (24.5-34.5); Prothrombin Time 10.6 sec (9.3-11.8)
[2023-01-22 06:01] LABS: Alanine Aminotransferase 16 U/L (7-40); Alkaline Phosphatase 140 U/L (46-116); Anion Gap 9 (5-15); Blood Urea Nitrogen 21 mg/dL (9-23); Calcium 9.7 mg/dL (8.5-10.1); Carbon Dioxide 23 mmol/L (20-30); Chloride 107 mmol/L (98-107); Glucose 130 mg/dL (74-106); LDL Cholesterol 126 mg/dL (< 100); Potassium 4.9 mmol/L (3.5-5.1); Sodium 139 mmol/L (136-145); Triglycerides 70 mg/dL (< 150)
[2023-01-22 06:02] LABS: Albumin 4.2 g/dL (3.2-4.8); Aspartate Aminotransferase 20 U/L (13-40); BUN/Creatinine Ratio 13.8 (10.0-20.0); Bilirubin, Total 0.2 mg/dL (0.2-1.0); Cholesterol 207 mg/dL (< 200); HDL Cholesterol 71 mg/dL (40-59)
[2023-01-22 06:04] LABS: Basophils # (auto) 0.1 10 ^3/uL (0-0.2); Basophils % (auto) 0.5 % (0.0-2.0); Eosinophils # (auto) 0 10 ^3/uL (0-0.8); Eosinophils % (auto) 0.1 % (0.0-7.0); Hematocrit 34.2 % (36.0-46.0); Hemoglobin 10.9 g/dL (12.2-16.2); Lymphocytes # (auto) 1.8 10 ^3/uL (0.4-5.4); Mean Corpuscular Hemoglobin 26.4 pg (28.0-32.0); Mean Corpuscular Hgb Conc. 31.8 g/dL (32.0-36.0); Mean Corpuscular Volume 82.9 fL (80.0-100.0); Monocytes # (auto) 0.3 10 ^3/uL (0-1.3); Monocytes % (auto) 1.4 % (0.0-12.0); Neutrophils # (auto) 15.7 10 ^3/uL (1.6-8.6); Nucleated Red Blood Cells % 0.1 %; Red Blood Cells 4.13 10^6/uL (4.0-5.20); White Blood Cell 17.8 10^3/uL (4.4-10.8)
[2023-01-22] MEDS ORDERED: ALBU108A5 INH (06:16)
[2023-01-22] MEDS ORDERED: CELE1CAP8 PO (06:16)
[2023-01-22] MEDS ORDERED: AMLO1TAB23 PO (06:16)
[2023-01-22] MEDS ORDERED: ACET-1881 PO (06:16)
[2023-01-22] MEDS ORDERED: ALBU0.084 NEB (06:16)
[2023-01-22 07:21] LABS: CRP High Sensitivity 3.13 mg/dL (<1.0)
[2023-01-22 07:57] LABS: Lipase 70 U/L (12-53); Magnesium 2.2 mg/dL (1.6-2.6)
[2023-01-22] MEDS: methIMAzole 5 MG TAB PO SCH (10:48)
[2023-01-22] MEDS: ENOXAPARIN SOD 40 MG/0.4 ML SYRINGE SC SCH (10:48)
[2023-01-22] MEDS: methylPREDNISolone SOD SUCC 40 MG/ML VL IV SCH ×2 (10:49→21:52)
[2023-01-22] MEDS: amLODIPine BESYLATE 5 MG TAB PO SCH (10:49)
[2023-01-22] MEDS ORDERED: IOHEXOL 350 MG/ML 100ML IJ ONE (13:49)
[2023-01-22] MEDS: OSELTAMIVIR 30 MG CAP PO SCH ×2 (14:17→21:51)
[2023-01-22 15:39] LABS: Urine Bacteria NONE SEEN /hpf (None Seen); Urine Blood Negative /uL (Negative); Urine Clarity Clear (Clear); Urine Color Colorless (Yellow); Urine Protein, UAD Negative (Negative); Urine Specific Gravity 1.047 (1.001-1.035); Urine Urobilinogen Normal (Negative); Urine WBC 1 /hpf (0 - 5); Urine pH 5.5 (5.0-8.0)
[2023-01-22 15:47] LABS: Amphetamine Screen, Urine Neg (NEGATIVE); Barbiturate Scree,Urine Neg (NEGATIVE); Benzodiazephine Screen, Urine Neg (NEGATIVE); Cannabinoid Screen, Urine Pos (NEGATIVE); Cocaine Screen, Urine Neg (NEGATIVE); Opiate Scree,Urine Neg (NEGATIVE); Phencyclidine Screen, Urine Neg (NEGATIVE)
[2023-01-22] MEDS ORDERED: ACET-1882 PO (17:32)
[2023-01-23 05:00] VITALS: BP 164/99; PULSE 96; RESP 18; TEMP 98.1; O2SAT 98
[2023-01-23] MEDS ORDERED: hydrALAZINE HCL 20 MG/ML VL IV PRN (05:30)
[2023-01-23 05:42] LABS: Basophils # (auto) 0.1 10 ^3/uL (0-0.2); Eosinophils # (auto) 0 10 ^3/uL (0-0.8); Hemoglobin 12.3 g/dL (12.2-16.2); Monocytes # (auto) 0.4 10 ^3/uL (0-1.3); Monocytes % (auto) 2.1 % (0.0-12.0)
[2023-01-23 05:44] LABS: Basophils % (auto) 0.3 % (0.0-2.0); Lymphocytes # (auto) 1.8 10 ^3/uL (0.4-5.4); Lymphocytes % (auto) 9.9 % (10.0-50.0); Mean Corpuscular Hgb Conc. 32.3 g/dL (32.0-36.0); Mean Corpuscular Volume 83.6 fL (80.0-100.0); Neutrophils # (auto) 16.2 10 ^3/uL (1.6-8.6); Neutrophils % (auto) 87.7 % (37.0-80.0); Red Blood Cells 4.55 10^6/uL (4.0-5.20); White Blood Cell 18.5 10^3/uL (4.4-10.8)
[2023-01-23 06:00] VITALS: O2SAT 98
[2023-01-23 06:06] LABS: Alanine Aminotransferase 14 U/L (7-40); Albumin 4.4 g/dL (3.2-4.8); Alkaline Phosphatase 144 U/L (46-116); Anion Gap 7 (5-15); Aspartate Aminotransferase 25 U/L (13-40); BUN/Creatinine Ratio 17.5 (10.0-20.0); Blood Urea Nitrogen 30 mg/dL (9-23); Calcium 9.8 mg/dL (8.5-10.1); Carbon Dioxide 25 mmol/L (20-30); Chloride 105 mmol/L (98-107); Glucose 128 mg/dL (74-106); Potassium 4.6 mmol/L (3.5-5.1); Sodium 137 mmol/L (136-145)
[2023-01-23 06:07] LABS: Bilirubin, Total 0.3 mg/dL (0.2-1.0); Total Protein 8.4 g/dL (5.7-8.2)
[2023-01-23 06:15] LABS: CRP High Sensitivity 1.16 mg/dL (<1.0)
[2023-01-23 08:30] VITALS: PULSE 75; PULSE 80; RESP 18; O2SAT 100
[2023-01-23 09:00] VITALS: BP 145/78; PULSE 81; RESP 17; TEMP 98.1; O2SAT 100
[2023-01-23] MEDS ORDERED: OSEL75CA5 PO (09:42)
[2023-01-23] MEDS ORDERED: AMOX500T86 PO (09:44)
[2023-01-23] MEDS: methylPREDNISolone SOD SUCC 40 MG/ML VL IV SCH (12:12)
[2023-01-23] MEDS: methIMAzole 5 MG TAB PO SCH (12:13)
[2023-01-23] MEDS: ENOXAPARIN SOD 40 MG/0.4 ML SYRINGE SC SCH (12:13)
[2023-01-23] MEDS: HYDROcodone-ACET 5/325MG TAB PO PRN (12:13)
[2023-01-23] MEDS: OSELTAMIVIR 30 MG CAP PO SCH (12:13)
[2023-01-23] MEDS: amLODIPine BESYLATE 5 MG TAB PO SCH (12:14)
[2023-01-23 13:00] VITALS: BP 145/76; PULSE 81; RESP 17; TEMP 98.3; O2SAT 98
== END 2023-01-23 13:45 | disposition home or self-care (01) | DRG 189 ==
LOC: EDBD 18:02 → ER 18:02 → TELE 22:30 → TELE-CENTR 01-21 20:50
PROVIDERS: ADMIT Nurse Practitioner; ATTEND Internal Medicine Pulmonary Disease
PROC: 5A09357 Assistance with Respiratory Ventilation, Less than 24 Consecutive Hours, Continuous Positive Airway Pressure (ICD-10-PCS; principal; 2023-01-20)
DX: J96.21 Acute and chronic respiratory failure with hypoxia (principal); J44.0 Chronic obstructive pulmonary disease with (acute) lower respiratory infection; J45.901 Unspecified asthma with (acute) exacerbation; J44.1 Chronic obstructive pulmonary disease with (acute) exacerbation; J11.1 Influenza due to unidentified influenza virus with other respiratory manifestations; D72.829 Elevated white blood cell count, unspecified; N18.9 Chronic kidney disease, unspecified; Z86.73 Personal history of transient ischemic attack (TIA), and cerebral infarction without residual deficits; R73.9 Hyperglycemia, unspecified; E78.5 Hyperlipidemia, unspecified; F03.90 Unspecified dementia, unspecified severity, without behavioral disturbance, psychotic disturbance, mood disturbance, and anxiety; I12.9 Hypertensive chronic kidney disease with stage 1 through stage 4 chronic kidney disease, or unspecified chronic kidney disease; K21.9 Gastro-esophageal reflux disease without esophagitis
CPT/HCPCS: 36415; 36600; 71045; 71275; 73060; 80048; 80053; 80061; 80307; 81001; 82306; 82607; 82805; 83036; 83690; 83735; 84443; 84484; 85025; 85379; 85610; 85730; 86141; 87426; 87804; 93005; 93970; 94640; 94660; 99291; G0378; G9035; J0696; J3470

== ENCOUNTER 2023-04-25 01:34 | Inpatient (IN) | payer MEDICARE, MEDICAID ==
[~2023-04-25] VITALS: Ht 170.2 cm; Wt 75.0 kg
[2023-04-25] VITALS (10 sets, daily range): BP systolic 118; BP diastolic 63; PULSE 70–106; RESP 14–27; TEMP 98; O2SAT 97–100
[~2023-04-25 01:34] MED LIST changes: +ACET-1881 PO; +ACET-1882 PO; +ALBU0.084 NEB; +ALBU108A5 INH; +AMLO1TAB23 PO; +AMOX500T86 PO; +CELE1CAP8 PO; +OSEL75CA5 PO
[2023-04-25] MEDS ORDERED: FUROSEMIDE 40 MG/4 ML VIAL IV ONE (02:15)
[2023-04-25 02:19] LABS: Basophils # (auto) 0.1 10 ^3/uL (0-0.2); Eosinophils # (auto) 0.7 10 ^3/uL (0-0.8); Hematocrit 39.5 % (36.0-46.0); Hemoglobin 12.5 g/dL (12.2-16.2); Lymphocytes # (auto) 3.3 10 ^3/uL (0.4-5.4); Monocytes # (auto) 0.4 10 ^3/uL (0-1.3); Neutrophils # (auto) 4.9 10 ^3/uL (1.6-8.6); White Blood Cell 9.4 10^3/uL (4.4-10.8)
[2023-04-25 02:21] LABS: Basophils % (auto) 0.8 % (0.0-2.0); Eosinophils % (auto) 7.6 % (0.0-7.0); Lymphocytes % (auto) 34.8 % (10.0-50.0); Mean Corpuscular Hemoglobin 26.2 pg (28.0-32.0); Mean Corpuscular Hgb Conc. 31.7 g/dL (32.0-36.0); Mean Corpuscular Volume 82.7 fL (80.0-100.0); Monocytes % (auto) 4.5 % (0.0-12.0); Neutrophils % (auto) 52.3 % (37.0-80.0); Nucleated Red Blood Cells % 0.3 %; Red Blood Cells 4.77 10^6/uL (4.0-5.20); Red Cell Distribution Width 15.7 % (11.8-14.3)
[2023-04-25 02:22] LABS: Alanine Aminotransferase 11 U/L (7-40); Albumin 4.5 g/dL (3.2-4.8); Alkaline Phosphatase 160 U/L (46-116); Anion Gap 5 (5-15); Aspartate Aminotransferase 21 U/L (13-40); Bilirubin, Total < 0.2 mg/dL (0.2-1.0); Blood Urea Nitrogen 16 mg/dL (9-23); Calcium 9.5 mg/dL (8.7-10.4); Carbon Dioxide 25 mmol/L (20-30); Chloride 112 mmol/L (98-107); Glucose 132 mg/dL (74-106); Potassium 4.2 mmol/L (3.5-5.1); Sodium 142 mmol/L (136-145); Total Protein 8.4 g/dL (5.7-8.2)
[2023-04-25 03:24] LABS: Urine Bacteria FEW /hpf (None Seen); Urine Blood Negative /uL (Negative); Urine Clarity Clear (Clear); Urine Hyaline Cast FEW /lpf (0 - 2); Urine Protein, UAD Negative (Negative); Urine Specific Gravity 1.007 (1.001-1.035); Urine Urobilinogen Normal (Negative); Urine WBC 9 /hpf (0 - 5)
[2023-04-25 03:25] LABS: Urine Color Straw (Yellow)
[2023-04-25] MEDS ORDERED: ACETAMINOPHEN 325 MG TAB PO PRN (09:00)
[2023-04-25] MEDS ORDERED: ONDANSETRON HCL 4 MG/2 ML VIAL IV PRN (09:00)
[2023-04-25] MEDS ORDERED: IPRATROPIUM BROM 0.5 MG/2.5ML INH SOL NEB SCH (09:00)
[2023-04-25] MEDS ORDERED: DOCUSATE SOD 100 MG CAP PO PRN (09:00)
[2023-04-25] MEDS ORDERED: ALBUTEROL SULF 2.5 MG/0.5ML(0.5%) NEB SOLN NEB SCH (09:00)
[2023-04-25] MEDS: HEPARIN SODIUM (PORCINE) 5000 UNITS/ML 1ML VIAL SC SCH ×2 (09:25→17:24)
[2023-04-25] MEDS: FUROSEMIDE 40 MG/4 ML VIAL IV SCH ×2 (09:54→21:50)
[2023-04-25] MEDS: amLODIPine BESYLATE 5 MG TAB PO SCH (09:54)
[2023-04-25] MEDS: ASPirin 325 MG TAB PO SCH (09:54)
[2023-04-25] MEDS: predniSONE 20 MG TAB PO SCH (09:55)
[2023-04-25] MEDS: MAXZIDE PO SCH (10:00)
[2023-04-25 10:36] LABS: Triglycerides 161 mg/dL (< 150)
[2023-04-25 10:37] LABS: LDL Cholesterol 109 mg/dL (< 100)
[2023-04-25 10:38] LABS: Cholesterol 189 mg/dL (< 200); HDL Cholesterol 52 mg/dL (40-59)
[2023-04-25] MEDS: HYDROcodone-ACET 5/325MG TAB PO PRN ×2 (10:42→21:50)
[2023-04-25] MEDS: IPRATROPIUM BROM 0.5 MG/2.5ML INH SOL NEB SCH ×2 (11:56→18:21)
[2023-04-25] MEDS: ALBUTEROL SULF 2.5 MG/0.5ML(0.5%) NEB SOLN NEB SCH ×2 (11:56→18:21)
[2023-04-25] MEDS ORDERED: VITAMINS D PO SCH (12:00)
[2023-04-25] MEDS ORDERED: CALCIUM PO SCH (12:00)
[2023-04-25] MEDS ORDERED: [UNRECOGNIZED DRUG - OTHER] PO SCH (12:00)
[2023-04-25] MEDS: SODIUM CHLOR 0.9% PF (SALINE LOCK) 10ML VIAL/SYR IV SCH ×2 (14:06→21:50)
[2023-04-25 17:21] LABS: COVID19 ANTIGEN SOFIA FIA NEGATIVE (NEGATIVE)
[2023-04-26] VITALS (20 sets, daily range): BP systolic 118–136; BP diastolic 67–80; PULSE 72–102; RESP 16–22; TEMP 97.9–98.4; O2SAT 95–100
[2023-04-26] MEDS: IPRATROPIUM BROM 0.5 MG/2.5ML INH SOL NEB SCH ×4 (00:09→19:11)
[2023-04-26] MEDS: ALBUTEROL SULF 2.5 MG/0.5ML(0.5%) NEB SOLN NEB SCH ×4 (00:09→19:11)
[2023-04-26] MEDS: HEPARIN SODIUM (PORCINE) 5000 UNITS/ML 1ML VIAL SC SCH ×3 (01:17→18:55)
[2023-04-26] MEDS: HYDROcodone-ACET 5/325MG TAB PO PRN ×2 (06:33→21:32)
[2023-04-26] MEDS: SODIUM CHLOR 0.9% PF (SALINE LOCK) 10ML VIAL/SYR IV SCH ×3 (06:33→21:27)
[2023-04-26] MEDS: FUROSEMIDE 40 MG/4 ML VIAL IV SCH ×2 (09:25→21:27)
[2023-04-26] MEDS: predniSONE 20 MG TAB PO SCH (09:25)
[2023-04-26] MEDS: amLODIPine BESYLATE 5 MG TAB PO SCH (09:26)
[2023-04-26] MEDS: ASPirin 325 MG TAB PO SCH (09:26)
[2023-04-26] MEDS: MAXZIDE PO SCH (10:00)
[2023-04-26 14:32] LABS: Base Excess 0.8 mmol/L (-2.0-2.0)
[2023-04-27] VITALS (12 sets, daily range): BP systolic 105–129; BP diastolic 41–71; PULSE 65–93; RESP 16–20; TEMP 36.7; O2SAT 93–100
[2023-04-27] MEDS: IPRATROPIUM BROM 0.5 MG/2.5ML INH SOL NEB SCH ×3 (00:07→13:01)
[2023-04-27] MEDS: ALBUTEROL SULF 2.5 MG/0.5ML(0.5%) NEB SOLN NEB SCH ×3 (00:07→13:01)
[2023-04-27] MEDS ORDERED: HEPARIN SODIUM (PORCINE) 5000 UNITS/ML 1ML VIAL ONE (00:23)
[2023-04-27] MEDS: HEPARIN SODIUM (PORCINE) 5000 UNITS/ML 1ML VIAL SC SCH ×2 (00:27→09:10)
[2023-04-27] MEDS: HYDROcodone-ACET 5/325MG TAB PO PRN ×3 (03:46→14:55)
[2023-04-27] MEDS: SODIUM CHLOR 0.9% PF (SALINE LOCK) 10ML VIAL/SYR IV SCH ×2 (05:31→14:57)
[2023-04-27] MEDS: amLODIPine BESYLATE 5 MG TAB PO SCH (09:07)
[2023-04-27] MEDS: FUROSEMIDE 40 MG/4 ML VIAL IV SCH (09:08)
[2023-04-27] MEDS: ASPirin 325 MG TAB PO SCH (09:08)
[2023-04-27] MEDS: MAXZIDE PO SCH (10:00)
== END 2023-04-27 16:30 | disposition home health service (06) | DRG 189 ==
LOC: EDSEX 01:34 → EDBD 01:34 → ER 01:34 → TELE 08:46 → TELE-WESTW 04-26 01:41 → WEST WING 04-26 19:43
PROVIDERS: ADMIT Internal Medicine; ATTEND Nurse Practitioner Acute Care
DX: J96.21 Acute and chronic respiratory failure with hypoxia (principal); I13.0 Hypertensive heart and chronic kidney disease with heart failure and stage 1 through stage 4 chronic kidney disease, or unspecified chronic kidney disease; N17.9 Acute kidney failure, unspecified; N39.0 Urinary tract infection, site not specified; N18.30 Chronic kidney disease, stage 3 unspecified; E03.9 Hypothyroidism, unspecified; I50.9 Heart failure, unspecified; Z20.822 Contact with and (suspected) exposure to COVID-19; E78.5 Hyperlipidemia, unspecified; J45.909 Unspecified asthma, uncomplicated; K21.9 Gastro-esophageal reflux disease without esophagitis; M19.90 Unspecified osteoarthritis, unspecified site; Z86.73 Personal history of transient ischemic attack (TIA), and cerebral infarction without residual deficits
CPT/HCPCS: 36415; 36600; 71045; 80053; 80061; 81001; 82805; 83036; 83880; 84443; 84484; 85025; 85379; 87086; 87426; 93005; 93306; 93970; 94640; 99291; G0378

== ENCOUNTER → 2024-05-10 | Outpatient (CLI) | payer MEDICARE, MEDICAID ==
[~2024-05-10] MED LIST changes: +CELE1CAP29 PO; -CELE1CAP8 PO
[2024-05-10 11:16] LABS: Basophils # (auto) 0.1 10 ^3/uL (0-0.2); Basophils % (auto) 0.7 % (0.0-2.0); Eosinophils % (auto) 12.9 % (0.0-7.0); Hematocrit 35.6 % (36.0-46.0); Hemoglobin 11.4 g/dL (12.2-16.2); Lymphocytes # (auto) 2.6 10 ^3/uL (0.4-5.4); Lymphocytes % (auto) 32.3 % (10.0-50.0); Mean Corpuscular Hemoglobin 26.2 pg (28.0-32.0); Mean Corpuscular Hgb Conc. 32.1 g/dL (32.0-36.0); Mean Corpuscular Volume 81.7 fL (80.0-100.0); Monocytes # (auto) 0.6 10 ^3/uL (0-1.3); Monocytes % (auto) 7.4 % (0.0-12.0); Neutrophils # (auto) 3.8 10 ^3/uL (1.6-8.6); Neutrophils % (auto) 46.7 % (37.0-80.0); Platelet Count (auto) 358 10^3/uL (140-450); Red Blood Cells 4.35 10^6/uL (4.0-5.20); Red Cell Distribution Width 15.2 % (11.8-14.3); White Blood Cell 8.1 10^3/uL (4.4-10.8)
[2024-05-10 11:53] LABS: Anion Gap 8 (5-15); BUN/Creatinine Ratio 12.1 (10.0-20.0); Blood Urea Nitrogen 15 mg/dL (9-23); Calcium 9.9 mg/dL (8.7-10.4); Carbon Dioxide 24 mmol/L (20-31); Glucose 86 mg/dL (74-106); Potassium 4.4 mmol/L (3.5-5.1); Sodium 140 mmol/L (136-145)
[2024-05-10 11:54] LABS: Albumin 4.2 g/dL (3.2-4.8); Total Protein 7.9 g/dL (5.7-8.2)
[2024-05-10 12:11] LABS: Alanine Aminotransferase < 9 U/L (7-40); Aspartate Aminotransferase 13 U/L (13-40); Bilirubin, Total 0.2 mg/dL (0.2-1.0); Chloride 108 mmol/L (98-107)
[2024-05-10 13:07] LABS: Alkaline Phosphatase 148 U/L (46-116)
[2024-05-10 13:46] LABS: Triglycerides 107 mg/dL (< 150)
[2024-05-10 13:48] LABS: Cholesterol 183 mg/dL (< 200)
[2024-05-10 13:49] LABS: HDL Cholesterol 45 mg/dL (40-59)
[2024-05-10 13:50] LABS: LDL Cholesterol 121 mg/dL (< 100)
== END | disposition home or self-care (01) ==
LOC: LAB 10:14
PROVIDERS: ATTEND Nurse Practitioner Family
DX: I12.9 Hypertensive chronic kidney disease with stage 1 through stage 4 chronic kidney disease, or unspecified chronic kidney disease (principal); N18.32 Chronic kidney disease, stage 3b; E05.90 Thyrotoxicosis, unspecified without thyrotoxic crisis or storm
CPT/HCPCS: 36415; 80053; 80061; 84443; 85025